=== PATIENT | female | born 1965 | race Caucasian/White ===

== ENCOUNTER 2025-04-08 16:13 | Emergency (ER) | payer OTHER, SELFPAY ==
[2025-04-08 16:17] VITALS: BP 146/88
[2025-04-08 16:40] LABS: Hematocrit 37.4 % (37.0-47.0); Hemoglobin 12.5 g/dL (12.0-16.0); Mean Corp Hgb Conc. 33.4 g/dL (33.0-37.0); Mean Corpuscular Volume 88.2 fL (81.0-99.0); Nucleated Red Blood Cells % 0 %; Platelet Count 300 10^3/uL (130-400); Red Cell Dist. Width 12.2 % (11.5-14.5)
[2025-04-08 17:00] LABS: ALT (SGPT) 20 U/L (0-35); AST (SGOT) 23 U/L (14-36); Albumin 4.8 g/dl (3.5-5.0); Alkaline Phosphatase 69 U/L (38-126); Blood Urea Nitrogen 13 mg/dl (7-17); Calcium 10.0 mg/dl (8.4-10.2); Carbon Dioxide 26 mmol/L (22-30); Chloride 105 mmol/L (98-107); Glucose 121 mg/dl (70-99); Lipase 108 U/L (23-300); Potassium 4.3 mmol/L (3.5-5.1); Sodium 140 mmol/L (135-145); Total Protein 7.6 g/dl (6.3-8.2); eGFR > 60.00
--- NOTE | 2025-04-08 18:52 | ED.GENMED ---
History of Present Illness
General
Chief Complaint: Abdominal Symptoms
Time Seen by Provider: 04/08/25 18:52
History of Present Illness
History of Present Illness:
FOCUSED PAST MEDICAL HISTORY
- Patient had bowel resection in the past
REVIEW OF OLD RECORDS
- I reviewed the discharge summary from [place]:

'History Of Present Illness (include Chief Complaint)
Kathryn Arriola is a 59 y.o. female with past medical history of small bowel obstruction, endometriosis, aortic stenosis presented to ER with complaints of nausea and constipation. Patient has not moved her bowels for the last 10 days and has been
saying minimal gas. Patient feels bloated and full while she is eating. She she has chronic constipation and takes MiraLAX on a daily basis and senna as needed.
On admission, CT abdomen consistent with stool burden, patient received Dulcolax suppository, mag citrate, mineral oil enema resulting in small BM. Patient admitted for further evaluation and treatment.
She left AMA
Patient was seen by GI, attending and colorectal surgeon PA. Patient stated she wanted to leave AMA, encouraged patient to stay but still insisting on leaving. Patient signed AMA form, copy placed on chart. IV line removed. Belongings collected.
Patient accompanied by .
Patient had liquid bm after a bowel prep. I discussed the case with radiology and they did NOT think a gastrograffin BE was indicated. I let the patient know and also the patient advocate
ALPRAZolam (XANAX) tablet 0.25 mg, 0.25 mg, oral, Nightly, Vianney Yi MD, 0.25 mg at 04/07/252048
aspirin chewable tablet 81 mg, 81 mg, oral, Daily, Vianney Yi MD, 81 mg at 04/08/25907
bisacodyL (DULCOLAX) suppository 10 mg, 10 mg, rectal, Daily, Vianney Yi MD
busPIRone (BUSPAR) tablet 15 mg, 15 mg, oral, Nightly, Vianney Yi MD, 15 mg at 04/07/25 2048
docusate sodium (COLACE) capsule 100 mg, 100 mg, oral, BID, Vianney Yi MD, 100 mg at 04/08/25 0907
DULoxetine (CYMBALTA) DR capsule 30 mg, 30 mg, oral, Daily, Vianney Yi MD, 30 mg at 04/08/25 09
estradioL (ESTRACE) tablet 0.5 mg, 0.5 mg, oral, Daily, Vianney Yi MD, 0.5 mg at 04/08/25 0921
ferrous gluconate (FERGON) tablet 324 mg, 324 mg, oral, BID with meals, Vianney Yi MD, 324 mg at 04/07/25 1631
flecainide (TAMBOCOR) tablet 50 mg, 50 mg, oral, q12h FOREST, Vianney Yi MD, 50 mg at 04/08/25 0909
furosemide (LASIX) tablet 20 mg, 20 mg, oral, Daily, Vianney Yi MD, 20 mg at 04/08/25907
magnesium citrate solution 296 mL, 296 mL, oral, Once, Vianney Yi MD
metFORMIN (GLUCOPHAGE) tablet 1,000 mg, 1,000 mg, oral, BID with meals, Vianney Yi MD
metoprolol succinate (TOPROL-XL) 24 Hour tablet 25 mg, 25 mg, oral, Daily, Vianney Yi MD, 25 mg at 04/07/25 1257
metoprolol succinate (TOPROL-XL) 24 Hour tablet 50 mg, 50 mg, oral, q PM, Vianney Yi MD
ondansetron (PF) (ZOFRAN) injection 4 mg, 4 mg, intravenous, q6h PRN, Vianney Yi MD, 4 mg at 04/08/25 0911
pantoprazole (PROTONIX) EC tablet 40 mg, 40 mg, oral, q AM AC, Vianney Yi MD, 40 mg at 04/08/25 0607
polyethylene glycol (MIRALAX) packet 17 g, 17 g, oral, Daily, Vianney Yi MD, 17 g at 04/08/25 0911
polyethylene glycol (PEG) bowel preparation 238 g, 238 g, oral, Once, Kirby Michael MD
topiramate (TOPAMAX) tablet 25 mg, 25 mg, oral, BID, Vianney Yi MD, 25 mg at 04/08/25 0920
Results for orders placed during the hospital encounter of 04/06/[address] Abdomen Pelvis w Contrast
Narrative
HISTORY: 59 years old; Female; constipated; unexplained constipation
TECHNIQUE: CT ABDOMEN PELVIS W CONTRAST (ax/cor/sag reformats)
COMPARISON: 10/08/2024
FINDINGS:
The included lower lung zones are clear.
Liver and gallbladder are unremarkable. No suspicious liver lesions. No biliary ductal dilatation. No radiopaque gallstones.
Spleen is normal in size and appearance.
Adrenal glands are normal.
Pancreas appears normal without mass or inflammatory change.
Stomach and duodenum are unremarkable.
There is no free air, free fluid, or organized fluid collection.
No suspicious or abnormally enlarged abdominal, retroperitoneal, pelvic, or inguinal lymph nodes are identified. No soft tissue masses.
The aorta is normal in caliber without dissection. Mild atherosclerotic calcifications are again demonstrated.
Urinary bladder is unremarkable without stones.
Prior hysterectomy noted.
Approximate 1.2 cm cyst right mid kidney again demonstrated. 1 mm nonobstructing stone is resident and the left kidney lower pole. Kidneys otherwise appear normal, no mass, perinephric stranding and edema, no hydroureteronephrosis.
Stool is seen throughout the large bowel from cecum to rectum. The large bowel otherwise appears normal. Previously seen site of focal narrowing in the lower to mid descending colon is no longer present.
Enterocolonic anastomosis in the right lower quadrant again noted and unchanged, unremarkable.
Small bowel appears normal. There is no bowel traction, the gastrointestinal tract mass, or bowel inflammatory change.
No suspicious bone lesions. Circumferential fusion at L4-L5 is intact and unremarkable, no new complication demonstrated.
Impression
1. No CT evidence of an acute or inflammatory intra-abdominal process.
2. Diffuse stool consistent for constipation as per the provided history. No suspicious findings otherwise.
Kirby Michael MD - 04/07/2025 12:41 PM EDT - GI consult

Kathryn Arriola 1965 [id number]
HOSPITAL ATTENDING: Vianney Yi MD
PCP: SANDRA Buchanan
Reason for Consult:
Severe constipation
HPI:
59 hx endometriosis with resection in 2012 hx severe constipation attemt at colon unsuccessful, failed Barbara ( Dr Munoz) and admitted with no bm few days despite treatemnt with laxatives. Goiven citrate magnesia and a milk molasses enema and moved
her bowels. Be done in January 2025 showed NO stricture

Note:
CHIEF COMPLAINT(S)
Abdominal pain and constipation for 15 days.
HISTORY OF PRESENT ILLNESS
The patient is a 59-year-old female presenting with 15 days of constipation, abdominal distention, nausea, and discomfort described as 'pain, more down here.' The patient has tried numerous interventions including enemas, magnesium citrate, and
suppositories with no relief. She reports ingesting two bottles of magnesium citrate, two enemas, and three suppositories without significant bowel movement, aside from 'a little black car' stool. The patient left [facility] after feeling
that the treatment was ineffective and that a more aggressive approach was not pursued.
While at [facility], a CT scan reportedly showed no signs of obstruction but a significant amount of stool. There was consideration of involvement from a gastrointestinal surgeon, but the surgeon was unavailable. The patient has a past surgical
history of small bowel resection for endometriosis, leading to the consideration of scar tissue causing potential complications. The absence of vomiting coupled with previous imaging reduces the likelihood of bowel obstruction.
Past medical history includes a barium enema performed six months earlier at [place] which did not show signs of obstruction. Current symptoms have not been alleviated by the treatments received thus far.
After leaving [facility], the patient sought further evaluation. The patient recalls a similar episode previously where a barium enema was utilized, but intervention today was not possible at the prior facility due to personnel issues.
PAST MEDICAL AND SURGICAL HISTORY
The patient has had a past surgery involving the removal of four inches of small intestine due to endometriosis.
REVIEW OF SYSTEMS
- Gastrointestinal: 15-day history of constipation, abdominal distention, nausea, and discomfort. No vomiting has been reported.
PHYSICAL EXAM
General: Alert, no acute distress. Smiling, appears comfortable.
Skin: Warm, dry.
Head: Normocephalic, atraumatic.
Neck: Supple, trachea midline.
Eyes, Ears, Nose, Mouth, and Throat: Oral mucosa moist.
Cardiovascular: Normal peripheral perfusion. No edema noted.
Respiratory: Respirations are non-labored.
Gastrointestinal: Abdomen is minimally distended but soft.
Back: Normal range of motion; normal alignment.
Musculoskeletal: Normal range of motion, normal strength.
Neurological: Alert and oriented to person, place, time, and situation. No focal neurological deficit observed.
Psychiatric: Cooperative, appropriate mood and affect.
PLAN
The plan includes discussing the patients case with a gastroenterology specialist to determine further management options for severe constipation, considering the unavailability of direct intervention (e.g., barium enema) on the earlier hospital
visit. Further evaluation by a gastrointestinal surgeon may be considered if imaging and clinical findings warrant.
DIFFERENTIAL DIAGNOSIS
The Differential Diagnosis includes, in no particular order and is not limited to:
1. Chronic constipation
2. Bowel obstruction secondary to adhesions
3. Colonic inertia
4. Functional gastrointestinal disorder
5. Ileus
6. Stricture from surgical scar tissue
7. Hypothyroidism
8. Rectal prolapse
9. Medication side effect
10. Diverticular disease
I discussed case with GI on-call, Dr. Cavazos who recommends milk molasses enema and obtain x-ray to evaluate stool burden
RADIOLOGY
- X-ray shows small volume stool
LABS
- White count 12.1, hemoglobin 12.5, chemistries unremarkable, lipase normal
UPDATE
- The patient had no bowel movement after milk molasses enema. X-ray shows only small volume stool. Minimal leukocytosis. I reviewed extensive evaluation at [facility] in [facility]. I notify Dr. Cavazos that the patient had no further bowel
movement and she expressed desire to see a motility specialist. Dr. Cavazos recommend the patient follow-up Dr. Florian. I notified GI front office to try to arrange close outpatient follow-up.
Phy Exam
Physical Exam
Physical Exam:
See HPI
Course
Orders/Labs/Results
Orders:
Orders
04/08/25 16:29
Complete Blood Count/With Diff Urgent
Comprehensive Metabolic Panel Urgent
Lipase Urgent
04/08/25 19:39
Abdominal Series [CR Obstruct Series W/pa Chest] Urgent
Comment:
Reason For Exam: constipation
04/08/25 19:45
Enema- Treatment ONCE
Type: Milk of Molasses
04/08/25 19:48
Doxycycline [Vibramycin] 100 mg PO NOW STA
Abnormal Lab Results
04/08/25
16:29
WBC 12.1 H 10^3/uL
(4.8-10.8)
Absolute Neuts (auto) 8.7 H 10^3/uL
(1.4-6.5)
Lymphocytes % 20.3 L %
(20.5-51.1)
Glucose 121 H mg/dl
(70-99)
04/08/25 16:29
04/08/25 16:29
Vital Signs
Initial and Last Documented VS:
Initial Vital Signs
Temp Pulse Resp BP Pulse Ox
36.7 C 77 20 146/88 98
04/08/25 16:17 04/08/25 16:17 04/08/25 16:17 04/08/25 16:17 04/08/25 16:17
Last Documented Vital Signs
Temp Pulse Resp BP Pulse Ox
36.7 C 71 18 127/62 100
04/08/25 16:17 04/08/25 19:16 04/08/25 19:16 04/08/25 19:11 04/08/25 19:13
*Pulse Oximetry
SaO2: 98
Oxygen Mode of Delivery: Room air
Patient hypoxic: no
*Critical Care Note
Total Time (30-74mins, 75-104mins- exclusive of procedures): Not Applicable
ED Attending Note
-
Portions of this chart may have been created with voice recognition software.� Occasional wrong word or��sound alike� substitutions may have occurred due to the inherent limitations of voice recognition software.
Discharge Plan
Departure
Patient Disposition: Home (Routine Discharge)
Date of Disposition: 04/08/25
Time of Disposition: 22:26
Patient with high blood pressure during this ER visit?: Yes
Discharge Problem:
Constipation
Instructions: Constipation, Adult (DC)
Referrals:
Alexey Florian MD [Active, Gastroenterology]
UNKNOWN - PT DOES,NOT KNOW [Family Provider]
Activity Restrictions/Additional Instructions:
I spoke to Dr. Cavazos who recommended the milk of molasses enema. Since you mention seeing a motility specialist, Dr. Cavazos recommended that you follow-up with Dr. Florian. I therefore notified the GI office here and they should be calling you to
arrange outpatient follow-up. The radiologist notes no obstruction, no free air, 'small volume scattered colonic stool'.
Interventions
Interventions:
*General Assessment Last Done: 04/08/25 16:17
LA-Goxuqc-Eddxpgwyac Assessment Last Done: 04/08/25 19:16
Discharge Date and Time
Print Language: RWANDAN
[2025-04-08 19:11] VITALS: BP 127/62
== END 2025-04-08 23:33 | disposition left against medical advice (07) ==
LOC: EMR 16:13
PROVIDERS: Emergency Medicine; EMERGENCY PHYSICIAN Emergency Medicine
DX: K59.09 Other constipation (principal); D72.829 Elevated white blood cell count, unspecified; I35.0 Nonrheumatic aortic (valve) stenosis; Z79.82 Long term (current) use of aspirin; Z90.49 Acquired absence of other specified parts of digestive tract
CPT/HCPCS: 99284; 74022; 80053; 83690; 85025